=== PATIENT | male | born 1990 | race Caucasian/White ===

== ENCOUNTER → 2016-10-04 | Outpatient (CLI) | payer OTHER ==
--- NOTE | 2016-10-04 10:26 | NUR ---
Eval 2 Hr/Client was referred here for an eval as a referral from his po.
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
== END | disposition home or self-care (01) ==
LOC: ADTC.GI 08:31
DX: F12.20 Cannabis dependence, uncomplicated (principal); F15.20 Other stimulant dependence, uncomplicated

== ENCOUNTER 2016-11-29 09:25 | Inpatient (IN) | payer OTHER ==
[~2016-11-29] VITALS: Ht 154.9 cm; Wt 67.4 kg
--- NOTE | ~2016-11-29 | INDIVTXPL2 ---
"PATIENT: JOSE CARLOS SHERWOOD | | [facility] UNIT #: [id number] | [address] AGE/SEX: 26 M : [birth year] | [address] | [place] [address] ADMIT/REG DATE: 11/29/16 | ROOM: [facility] LOC: ADTC | ADTC | Individualized Treatment Plan DATE: 12/06 Problem Statement/Issue Identified: Client views self as honest and genuine with people thus lacks an objective viewpoint and has tendencies to be manipulative and controlling which contributes to his chemical use. Goal: Assist client in gaining an understanding of his behaviors and the importance of maintaing healthy boundaries in his relationship. Objectives/Activities to achieve goal: 1. Client is to read [place] to learn about various personality characteristics that are common in individuals who suffer from alocholism and drug addiction and share how he relates with his counselor and in group. Due Date: 12/17/16 Complete: Incomplete: 2. Client will read Letting Go the Need To Control sharing insight he has gained and how he relates with his counselor and in group. Due Date: 12/17/16 Complete: Incomplete: 3. Client will create a list of at least 8 Healthy Boundaries he needs to establish in his relationships and share this list with his counselor and in group. Due Date: 12/17/16 Complete: Incomplete: Client Signature Date Counselor Signaure: Date Outcome/Measurement of Progress Towards Goal: Counselor Signature: Date "
--- NOTE | ~2016-11-29 | CLPRLASSUM ---
"PATIENT: JOSE CARLOS SHERWOOD | | [facility] UNIT #: [id number] | [address] AGE/SEX: 26 M : [birth year] | [address] | [place] [address] ADMIT/REG DATE: 11/29/16 | ROOM: [facility] LOC: ADTC | ADTC | Client Problem List/Assessment Summary Date: 12/06/16 Problems identified by the client: Clients continued use has become unmanageable to the extent that treatment has become necessary. Client has drug charges and is currently on probation. Problems identified by significant others: N/A Client's Strengths: friendly, participates Problem List: Code: T Client needs to become familiar with basics of recovery as he is new to treatment and Twelve Step Program. Code: T Client views self as honest and genuine with people thus lacks an objective viewpoint. Has tendencies to be manipulative and controlling which contributes to his chemical use. Code: T Client continually sabotages his lifelong desire to be loved and cared for by keeping relationships shallow and pushing others away via acting out behaviors which contribute to his abuse of chemicals. Code: T Client needs to identify relapse warning signs and develop a plan to deal with them as they arise. Code Green: T: to be addressed during course of treatment O: problem noted, expected to resolve itself with abstinence--specific tx plan not required R: problem noted, will be referred upon discharge PRIMARY COUNSELOR: Ernestina Rivera"
--- NOTE | ~2016-11-29 | TXPLANREV ---
"PATIENT: JOSE CARLOS SHERWOOD | | [facility] UNIT #: [id number] | [address] AGE/SEX: 26 M : [birth year] | [address] | [place] [phone] ADMIT/REG DATE: 11/29/16 | ROOM: [facility] LOC: ADTC | ADTC | Treatment Plan/Staffing Review Date: 12/21/16 Treatment plan was reviewed and determined appropriate as written: yes Treatment plan was reviewed and the following changes/addition/deletions are necessary: Client was given a relapse prevention assignment along with a gratitude list to complete. Discharge plans were reviewed and determined appropriate as previously documented: yes Discharge plans were reviewed and determined to be as follows: Client will be discharging on December 27 and go to the [facility] with [facility]care [facility]. Other pertinent issues discussed during this staffing review include: none Staff Present: Gabriela Arias, Nori Dick, Jenni Cervantes, Krista Arias PRIMARY COUNSELOR: Ernestina Rivera Client Signature Counselor Signature Date Time "
--- NOTE | ~2016-11-29 | TXPLANREV ---
"PATIENT: JOSE CARLOS SHERWOOD | | [facility] UNIT #: [id number] | [address] AGE/SEX: 26 M : [birth year] | [address] | [place] [phone] ADMIT/REG DATE: 11/29/16 | ROOM: [facility] LOC: ADTC | ADTC | Treatment Plan/Staffing Review Date: 12/13/16 Treatment plan was reviewed and determined appropriate as written: Yes Treatment plan was reviewed and the following changes/addition/deletions are necessary: Client was given the assignment to write vent letters to his mother and father whom he says has abandoned him and feelings letter to his best friend and his girlfriend who he has been living with. Discharge plans were reviewed and determined appropriate as previously documented: yes Discharge plans were reviewed and determined to be as follows: Client has filled out applications and signed releases to [facility], [facility], and [facility]. Other pertinent issues discussed during this staffing review include: None Staff Present: Nori Smith Lori C PRIMARY COUNSELOR: Ernestina Rivera Client Signature Counselor Signature Date Time "
--- NOTE | ~2016-11-29 | RESCARESUM ---
PATIENT: JOSE CARLOS SHERWOOD | | [facility] UNIT #: [id number] | [address] [facility] AGE/SEX: 26 M : [birth year] | [address] | [place] [address] ADMIT/REG DATE: 11/29/16 | ROOM: [facility] LOC: ADTC | ADTC | Summary of Residential Care Primary Counselor: [facility] Date of Admission: 11/29/16 Date of Discharge: 12/27/16 Referral Source: probation Primary Care Provider Prior to Admission: None Given Admitting Diagnosis: F12.20 Cannabis Use Disorder, severe; F15.20 Stimulant Use Disorder, severe; Severe Thoracolumbar Scoliosis; Chronic Restrictive Pulmonary Disease due to severe Scoliosis; Chronic Intractable back pain; Tobacco Use Disorder all per history and physical by Dr. Cazares. Discharge Diagnosis: Same as above Goals Achieved: Client verbalized understanding of the severity of his powerlessness and unmanagability related to his substance use. He practiced identifying and appropriately expressing his feelings. Client began to work on relapse triggers and prevention plan. Continued Obstacles to Sobriety/Relapse Issues: Client believes that he has figured out how to stay clean and repeatedly stated how bored he was in treatment and just wanted to "get on with things." Family Issues Addressed: Client attended family education but had no family in attendance. Y Individual Therapy Y Group Therapy Y Educational Series on Substance Abuse N Parents/Significant Others Attended Family Program N Acute Medical Problems During the Course of Treatment N Transferred to Hospital During the Course of Treatment Y Accepting of Substance Abuse Problem N Non-accepting of Substance Abuse Problem N Required Psychological or Psychiatric Consultation During the Course of Treatment Completed AA Step # 1 During This Level of Care Significant Incidences During Treatment: None Reason For Discharge: Y Completed Residential TX Goals and Ready For Next Level of Care N Left Tx Against Medical Advice/Treatment Goals Not Complete N Completed Residential Tx Goals But Refusing Continuing Care Recommendations N Discharged Due to Noncompliance/Treatment Goals not Completed N Discharged Earlier Than Planned Due to: PATIENT: JOSE CARLOS SHERWOOD | | [facility] UNIT #: [id number] | [address] [facility] [facility] AGE/SEX: 26 M : 86 | [address] | [place] [address] ADMIT/REG DATE: 11/29/16 | ROOM: [facility] LOC: ADTC | ADTC | Summary of Residential Care Continuing Care Plan/Recommendations: N Intensive Partial Care Y Sponsor N Partial Care Y AA Meetings/NA Meetings Y Outpatient N Co-dependency Services N Therapeutic Community N [facility] [address] N Mental Health Therapy N Marriage Counseling N Other Specific Continuing Care Plan: It is recommended that client immediately check into the [facility] once he is discharged from residential treatment and follow all rules of the house. Client is recommended to complete outpatient treatment at [facility] with Roscoe Rios and outpatient group on Monday nights. It is recommended that client attend 3-4 AA/NA meetings per week, gain and call his sponsor weekly, and work a strong prgram of recovery. It is also recommended that client follow all probation rules and regulations. If client relapses it is recommended he seek a higher level of care. PRIMARY COUNSELOR: Ernestina Rivera
--- NOTE | ~2016-11-29 | INDIVTXPL2 ---
"PATIENT: JOSE CARLOS SHERWOOD | | [facility] UNIT #: [id number] | [address] AGE/SEX: 26 M : [birth year] | [address] | [place] [address] ADMIT/REG DATE: 11/29/16 | ROOM: [facility] LOC: ADTC | ADTC | Individualized Treatment Plan DATE: 12/06/16 Problem Statement/Issue Identified: Client needs to become familiar with basics of recovery as he is new to treatment and the Twelve Step Program. Goal: To assist client in gaining a better understanding of the power of his disease. Objectives/Activities to achieve goal: 1. Client will complete his Getting Started in Treatment packet where he will identify specific events and behaviors which have contributed to his decision to seek treatment and how his addiction has progressed over the years which he will share with his counselor and selected pages in group. Due Date: 12/12/16 Complete: Incomplete: 2. Client will complete Step 1, which will identify core values he has compromised in his addiction and share with his counselor and selected pages in group. Due Date: 12/12/16 Complete: Incomplete: 3. Client is to attend AA/NA meetings, ask for and get at least 5 names and numbers of men in recovery, helping him build a support system and gain a possible sponsor, and share that list with his sponsor. Due Date: on-going Complete: Incomplete: Client Signature Date Counselor Signaure: Date Outcome/Measurement of Progress Towards Goal: Counselor Signature: Date "
--- NOTE | 2016-11-29 13:06 | NUR ---
Admit Note: Client is 26 y/o single male from . Dropped off by [facility] staff where he has been for 10 days. DOC is meth last used 11/06 and second DOC is pot also last used 11/06. Doesn't anticipate any family participation.
--- NOTE | 2016-11-29 22:43 | NUR ---
Education: 1 hour lecture given by counselor on co-dependency
--- NOTE | 2016-11-29 22:53 | NUR ---
Tech note: clients played catchphrase for rec, participated in guided meditation and attended AA meeting SE: 1st full day
--- NOTE | 2016-11-30 04:37 | NUR ---
bed note: client was in bed with eyes closed and motionless at all bed checks.
--- NOTE | 2016-11-30 09:55 | NUR ---
Tech notes: Client is working on Getting started
--- NOTE | 2016-11-30 11:30 | NUR ---
GROUP 1.5 HRS. 1:12 Client was oriented to purpose and rules of group. Discussion included healthy coping skills to deal with stress and feelings. Peer processed from his step 1 assignment identifying how he betrayed his values in his addiction.
--- NOTE | 2016-11-30 13:15 | NUR ---
Education note: Client attended educational speaker Dallas Patel
--- NOTE | 2016-11-30 17:00 | NUR ---
Trauma Note: Client has had trauma that will be addressed in individual therapy. Client may want to do EMDR.
--- NOTE | 2016-11-30 17:00 | NUR ---
Individual Therapy, 1.0 hours, This session focused on orienting client to how treatment works. Client was welcomed and asked to explain the chain of events that led him to residential treatment. Client was advised he will see his counselor twice a week, is required to attend all programming and be on time, discussed family participation and signed release forms, explained visiting hours and no phone privileges for the first week, explained to wave at the [facility] if awake during bed check, and reviewed his initial treatment plan.
--- NOTE | 2016-11-30 17:31 | NUR ---
SPIRITUAL EDUCATION 1 HR. Today we used music to invoke discussion, symbolize how it can be either positive spirituality or negative spirituality, and discussed the feelings. We used one song that depicted addiction, one that talked about recovery, and since we are close to Mother's Day, one that depicted addiction in parents and forgiveness.
--- NOTE | 2016-11-30 18:19 | NUR ---
Education: 1 Hour. Client attended "Boudaries" lecture given by staff.
--- NOTE | 2016-11-30 20:38 | NUR ---
Family Note: Client does not have any family and was abandoned at a very young age. Client may ask his roommate to join in family education but is not sure at this time.
--- NOTE | 2016-11-30 22:58 | NUR ---
Tech Note: Client played a game for rec, and attended The on unit N.A.Meeting. SE:All Day
--- NOTE | 2016-12-01 04:30 | NUR ---
Bed Note: Client was in bed with eyes closed and motionless at all bed checks.
--- NOTE | 2016-12-01 12:44 | NUR ---
Group 1.5 Hr Ratio 1:9/Topics today were a collage, two step ones, a getting startred and feelings letters. Client shared how he could relate to what clients were sharing from assignments and issues. Almost too much.
--- NOTE | 2016-12-01 16:44 | NUR ---
FAMILY EDUCATION 3 HRS. Client attended alone and took part in the discussion on the disease concept. All related to progression and consequences of addiction. Client is very verbal and offers many examples of the progression of his addiction.
--- NOTE | 2016-12-01 18:17 | NUR ---
Education 1HR: Clt watched video called "Predator part 1" by Josue Del Rosario with staff present.
--- NOTE | 2016-12-01 23:11 | NUR ---
Tech Note: Client took a walk for rec and attended the A.A.Meeting. Client went to room c/o migraine
--- NOTE | 2016-12-01 23:24 | NUR ---
1:00 pm. Education Note: Client watched video "Inside the Addictive Personality"
--- NOTE | 2016-12-02 04:09 | NUR ---
Bed Note: Client was in bed and motionless at all bed checks.
--- NOTE | 2016-12-02 11:59 | NUR ---
Group 1.5 hr Ratio 1:10/Topics today were Orientation a new client to group rules and goals, a con game packet and a letter to a family member. Client shared a lot and had to be reeled in some so he would not monopalize group. Some times grace got way off track.
--- NOTE | 2016-12-02 14:34 | NUR ---
PEER REVIEWS 1.5 HRS: Clt participated in peer review process and was able to give open and honest feedback to those receiving a review.
--- NOTE | 2016-12-02 15:42 | NUR ---
Tech Note: Client participated in group walk and watched "Marijuana" by Josue Del Rosario. Assignment being worked on is Step 1.
--- NOTE | 2016-12-02 23:23 | NUR ---
Tech note: Client played games and watched movies. Client walked to an offsite AA meeting.
--- NOTE | 2016-12-03 04:02 | NUR ---
Bed note: Client was in bed with eyes closed and no distress at all bed checks
--- NOTE | 2016-12-03 16:55 | NUR ---
Tech Note: Client went to A.A.Meeting at [address]. also went on walk Client is working on Step One
--- NOTE | 2016-12-03 22:16 | NUR ---
Tech note: Client's were just starting to grill around 6pm so we did not have rec this evening. Client walked to an offsite AA meeting, played games and watched movies. SE; Family
--- NOTE | 2016-12-04 04:46 | NUR ---
tech note: client was motionless in no distress at all bed checks.
--- NOTE | 2016-12-04 17:42 | NUR ---
Tech Note: Client participated in Big Book study. Client attended quaker. Client stated that he is working on reading the Big Book.
--- NOTE | 2016-12-04 23:31 | NUR ---
tech note: Client participated in community clean & attended FINANCIAL REPORTING ANALYST. Client was redirected by tech for talking and being disruptive during the client meeting- also made inappropriate remarks. SE: all day.
--- NOTE | 2016-12-05 04:25 | NUR ---
tech note: client was motionless in no distress at all bed checks.
--- NOTE | 2016-12-05 11:30 | NUR ---
Experiential Group 1.5 hr/ Clients all participated in looking at family dynamics and feelings through sculpturing and participated with feedback, relating and/or role-playing. This client participated in sculpture.
--- NOTE | 2016-12-05 17:50 | NUR ---
Tech Note: Client went for an outdoor walk in the afternoon. Client stated that he is working on Step One.
--- NOTE | 2016-12-05 20:49 | NUR ---
Education 1 HR: Clt listened to lecture given by counselor on communication.
--- NOTE | 2016-12-05 21:00 | NUR ---
FAMILY EDUCATION 3 HRS., GROUP 2 HRS. 2:9 Client attended alone and took part in the discussion on the family roles, codependency and detachment. Client related to mascot roles. Client actively participated and shared about resentments towards his family. He is encouraged to write feelings letters to them (to journal only) and work on letting go of resentments. He repeatedly said "can't" let go and was challenged to reword to "won't" and work on willingness.
--- NOTE | 2016-12-05 23:14 | NUR ---
Client was in family client received his first TRUE 30 day chip at N.A.Meeting
--- NOTE | 2016-12-06 04:58 | NUR ---
Bed Note: Client was in bed and motionless at all bed checks
--- NOTE | 2016-12-06 12:36 | NUR ---
A.M. 1.5 hr group/ Assignments shared were step 1, feelings letters, timeline to music, and a group member asking for help on how to forgive self. This client gave a lot of feedback and at times talks too much. He also had to be told to not play with his necklace, to stand on his feet instead of his knees when behind chair. He also wandered over to the brochures on the table and started looking at them and was told to not do that. He said he would like to become a counselor.
--- NOTE | 2016-12-06 15:19 | NUR ---
Tech Note: Client joined group for afternoon walk, listened to speaker from the [facility] and is working on Step 1 and journalling.
--- NOTE | 2016-12-06 16:06 | NUR ---
Tech Note: Client attended Relapse Prevention education with Nori.
--- NOTE | 2016-12-06 19:55 | NUR ---
Education: 1 hour lecture on STD/AID/HIV gicinthia by [facility].
--- NOTE | 2016-12-06 22:35 | NUR ---
Tech note : Client worked on Slacker crafts and get well cards. Client participated in guided meditation and went to an onsite AA meeting.
--- NOTE | 2016-12-07 04:16 | NUR ---
Bed note: Client was in bed with eyes closed and no distress at all bed checks
--- NOTE | 2016-12-07 11:15 | NUR ---
Tech Note: Client is working on Step 1.
--- NOTE | 2016-12-07 12:08 | NUR ---
AM GROUP 13:1/1.5 HR: Client and peers heard multiple clients process assignments and issues. Most did offer feedback, asked clarifying questions and shared from their own experiences. This client did volunteer to process an assignment, but time ran out due to many who wanted to relate and share. Client was active throughout with support and sharing.
--- NOTE | 2016-12-07 13:19 | NUR ---
Tech Note: Client walked in the hallways for afternoon exercise.
--- NOTE | 2016-12-07 13:23 | NUR ---
Education One Hour: Client heard from members of the recovery community, who shared their experience, strength and hope.
--- NOTE | 2016-12-07 18:47 | NUR ---
Education: 1 hour lecture given by counselor on "Disease concept".
--- NOTE | 2016-12-07 20:53 | NUR ---
Individual Therapy, 1.0 hours, This session focused on developing clients problems needs list along with treatment plans. Client signed releases for the [place] [place] [facility] [place].
--- NOTE | 2016-12-07 22:33 | NUR ---
Tech note: Client played catch phrase for rec and attended an onsite NA meeting. SE: All day
--- NOTE | 2016-12-08 05:00 | NUR ---
Bed note: Client was in bed with eyes closed and no distress at all bed checks.
--- NOTE | 2016-12-08 10:47 | NUR ---
Tech Note; Client participated in light stretching for morning exercise. Client stated that he is working on Step One and reading the NA book.
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
--- NOTE | 2016-12-08 12:51 | HP ---
ADMIT: 11/29/2016 RM/LOC: [facility] MR#: [id number] [address] [facility] [address] [place] [id number] JOSE CARLOS SHERWOOD [address] [place] [address] History and Physical SEX: M AGE: 26 : 1990 DATE OF SERVICE: CHIEF COMPLAINT: Continued drug use while on probation. CLINICAL HISTORY: The patient is a 26-year-old disabled white male admitted to the residential care program for treatment of his cannabis use disorder and methamphetamine use disorder. He is referred to treatment after having failed a UA while on probation. The patient is currently on probation for possession of a controlled substance and obstruction of justice. He continued to use while on probation and after having several positive UAs. He was given the option of having his probation revoked and going to long term or coming to treatment. For that reason, he was admitted to the [facility] and is in detox at [facility] prior to coming to treatment. The patient notes his drug of choice is marijuana. He has been smoking pot since age 9. He has been a heavy pot user for the past 8-9 years typically smoking minimum of 3 g a day, going through a 0.25 ounce of pot every 2 days. He notes he usually will smoke a bowl or a joint in the morning and continued to smoke intermittently throughout the day. His second drug of choice is methamphetamine, which he just started using in the last couple of years. First use was at age 24. Introduced to meth by one of his friends. He notes he either snorts or smokes meth. Typically using about a quarter gram per day. The patient notes that his legal problems have escalated significantly since he started using meth. He does note that he has not drank alcohol since age 19. He had start drinking alcohol around age 10 with frequently binge drink to intoxication, but after being arrested for a DUI at age 19. He has not drank since that time noting that his state primarily with pot, which has always been his drug of choice. The patient notes as a teen, he experimented with inhalants a couple of times but he has really used no other drugs. His drugs of choice are pot and meth. He has had no prior treatment. He comes to treatment at this time in hopes of preserving his probation and avoiding going to long term. PAST MEDICAL HISTORY: Previous hospitalizations. The patient was hospitalized with an unintentional overdose of drugs at age 14. The patient notes he had taken a large amount of drug. He was unsure what they were. Because of his drug overdose, he ended up in the hospital in a coma for 4-5 days at age 14. He has had no other recent hospitalizations. His only previous surgical procedure was extraction of his wisdom teeth as a teenager. CURRENT MEDICATIONS: None. ALLERGIES: NONE KNOWN. MEDICAL ILLNESSES: The patient has severe thoracolumbar scoliosis with chronic back pain. He was recommended to have surgery for his scoliosis when he was a teenager, but his mother refused to let him have surgery at that time. He subsequently has had chronic ongoing back pain, which limits his ability to work. He cannot do any type of physical or strenuous work activity. Other than for his scoliosis, he denies scoliosis with associated chronic back pain. He denies any other chronic medical problems. ADMIT: 11/29/2016 RM/LOC: [facility] MR#: [id number] [address] [place] [id number] JOSE CARLOS SHERWOOD [address] [place] [address] History and Physical SEX: M AGE: 26 : 1990 REVIEW OF SYSTEMS: On 12-point review of systems no other significant history other than he is a smoker, typically smoking greater than a pack a day. He denies significant cough or shortness of breath. SOCIAL HISTORY: The patient is single. He is noted to have dropped out of high school in the 10th grade. He did get his GED while at the [employer]. He presently is living in a house he rents with a couple of friends. He notes that because of his family issues he was at the [employer] for 2-1/2 years from age 13 to age 16. He does note that he is currently on probation for legal charges and has been on probation since mid October of 2016. FAMILY HISTORY: The patient notes that his parents when he was quite young. He has had essentially no contact with his father. He notes he was raised by his maternal grandparents until he was approximately age 10. He then lived briefly with his mother and stepfather but after living with him for a short while was then placed at the [employer]. The patient notes he has older brother and a younger brother. He knows very little about his father's family. He notes that several of his uncles on his mother side of the family have had some drug and alcohol issues. PHYSICAL EXAMINATION: VITAL SIGNS: Temp is 96, pulse 94, respirations 20, blood pressure 121/74, height 5 feet 1 inch, his weight is 147 pounds. GENERAL: The patient is a 26-year-old male who is in no acute distress. Oriented x3. ENT: Unremarkable. Nose and throat noninflamed. NECK: Supple without adenopathy. LUNGS: Today are noted to be diminished. Due to his scoliosis, he has marked chest deformity and limited chest expansion. Severe thoracolumbar scoliosis. HEART: Has a regular rhythm without murmur. ABDOMEN: Somewhat protuberant and nondistended. Bowel sounds normoactive. I do note that his ribs on the right side touch his iliac crest when he is seated due to his severe scoliosis. There is some abdominal crowding due to this factor. GENITALIA: Normal male. EXTREMITIES: Normal to gross exam. Moves all extremities well. NEUROLOGIC: I can see no focal deficit. He has a markedly abnormal spine exam with severe scoliosis and limited mobility in his spine. Neurologic as noted no focal deficits. MENTAL STATUS EXAMINATION: He is pleasant and cooperative. Affect is appropriate. No bizarre ideation. No delusions. He is oriented x3. His memory is intact. He appears to be of average intelligence. His insight and judgment are both limited. ASSESSMENT AT THE TIME OF ADMISSION: 1. Cannabis use disorder, severe. 2. Stimulant use disorder, severe. 3. Severe thoracolumbar scoliosis. ADMIT: 11/29/2016 RM/LOC: [facility] MR#: [id number] [address] [id number] JOSE CARLOS SHERWOOD [address] [place] [address] History and Physical SEX: M AGE: 26 : 1990 4. Chronic restrictive pulmonary disease due to his severe scoliosis. 5. Chronic intractable back pain. 6. Tobacco use disorder. PLAN: Plan is to admit the patient to the residential care program with a tentative discharge date of 12/27/2016. I encouraged the patient to consider group home house placement. I feel that he will benefit from the structure and supportive environment of a group home house to help maintain his long-term sobriety. I strongly encouraged him to seek further orthopedic spine consultation once he is out of the treatment program. I would recommend referral to [facility] to see if he could get him some support and help and pursuing his treatment of his spinal disorder. Patrice Cazares MD/ [facility] JOB #: [id number] CC: Patrice Cazares, Attending Physician FAMILY PHYSICIAN, Family Physician
--- NOTE | 2016-12-08 15:59 | NUR ---
Step Education 1 hr/Focus was on step 4 making a searching and fearless moral inventory of ourselves. Handed out some questions each person answered on paper and then we discussed. This person participated.
--- NOTE | 2016-12-08 16:21 | NUR ---
Education 1 Hour: Client heard from two members of the recovery community, who shared their experience strength and hope.
--- NOTE | 2016-12-08 20:25 | NUR ---
Education: 1 Hour. Client attended Wili Chan "Unhealthy Families" video.
--- NOTE | 2016-12-08 20:51 | NUR ---
Late note due to illness. Individual therapy, 1.0 hours, This session focused on review of clients BPS and Getting Started Packet. Client was given Step 1 to work on.
--- NOTE | 2016-12-08 23:01 | NUR ---
Client went on a walk for rec, participated in guided meditation, and attended the on unit A.A.Meeting. SE: A.A.Meeting
--- NOTE | 2016-12-09 05:36 | NUR ---
tech note: client was motionless in no distress at all bed checks.
--- NOTE | 2016-12-09 11:55 | NUR ---
Group 1.5 Hr Ratio 1:11/Topics today were two Getting started packets, feelings letters and a letter to self. Client shared what people should do but not how he could relate to what they shared. Client likes to tell others what to do but needs to look at his won behavior.
--- NOTE | 2016-12-09 14:50 | NUR ---
Tech Note: Client joined our group walk for exercise. Watched video titled "Sound of Silence" and is working on Step 1.
--- NOTE | 2016-12-09 14:50 | NUR ---
Tech Note: Client joined our group walk for exercise. Watched video titled "Sound of Silence" and is working on Step 1.
--- NOTE | 2016-12-09 15:43 | NUR ---
PEER REVIEWS 1.25 HRS: Clt participated in peer reviews and took a risk to give open and honest feedback to those receiving a review.
--- NOTE | 2016-12-09 16:00 | NUR ---
Individual Therpay, 1.0 hours, This session focused on reviewing clients BPS and Getting Started Packet. Client was given Step 1 and Letting Go the Need to Control to complete.
--- NOTE | 2016-12-09 20:31 | NUR ---
TECH NOTE: Client participated in reading of guidelines, watched TV/movies and attended optional off site AA meeting SE: lunch
--- NOTE | 2016-12-10 04:32 | NUR ---
BED NOTE: Client was in bed, motionless with eyes closed all bed checks.
--- NOTE | 2016-12-10 16:20 | NUR ---
Tech Note: Client is working on Profig.
--- NOTE | 2016-12-10 20:26 | NUR ---
Tech note: Clt played a game for recreation and attended offsite AA mtg. Clt played cards, watched tv and used phone. SE was rec time
--- NOTE | 2016-12-11 04:26 | NUR ---
BED NOTE: Client was in bed motionless with eyes closed all three bed checks.
--- NOTE | 2016-12-11 15:56 | NUR ---
Tech Note: Client participated in Big Book study. Client stated that he is working on Step One.
--- NOTE | 2016-12-11 23:07 | NUR ---
Tech Note: Client attended the A.A.Panel with Rashard Kelly Client also attended the SECURITY INTELLIGENCE ANALYST Meeting SE: Napping
--- NOTE | 2016-12-12 04:38 | NUR ---
Bed Note: Client was laying in bed and motionless at all bed checks.
--- NOTE | 2016-12-12 09:49 | NUR ---
Tech note: Client is working on Step 1 and Anger pkt
--- NOTE | 2016-12-12 12:56 | NUR ---
Education Note: Clients attended speaker for education Kit J.
--- NOTE | 2016-12-12 15:54 | NUR ---
PEER REVIEWS 1.25 HRS: Clt participated in peer reviews and took a risk to give open and honest feedback to those receiving a review.
--- NOTE | 2016-12-12 16:00 | NUR ---
RECOVERY 101 1 hr/ Clients discussed what they are learning from attending the 12 step recovery meetings about fundamentals of recovery, how to work a program such as: get and use a sponsor, work the steps, read C.A.L., HOW/honesty, openminded &willing, service work, HP/spirituality, opening up, slogans, serenity prayer, home group/meetings, etc. Clients shared and got into story telling at times. They learned 15% is addiction and 85% is the living problem so this is why keep going to meetings and working the program is vital.
--- NOTE | 2016-12-12 18:20 | NUR ---
Education: 1 Hour. Client attended "Feelings" lecture presented by staff.
--- NOTE | 2016-12-12 23:20 | NUR ---
tech note: client played Catch Phrase for recreation & attended onsite NA meeting. Client was redirected by tech for doing pull-ups using the frame of the smoke hut & later for using the chair to do sit-ups. Client was redirected for his language by tech during recreation. SE: All Day.
--- NOTE | 2016-12-13 04:47 | NUR ---
tech note: client was motionless in no distress at all bed checks.
--- NOTE | 2016-12-13 09:00 | NUR ---
Individual Therapy, 1.0 hours, This session focused on review of clients Step 1 pcket. Client was also addressed about starting a relationship in treatment and how this is not something that is accepted. Client shared that there was no relationship and that he didn't want a girl that everyone else could have also. Client shared that he accepted that he needed to go to a more structured environment and so he filled out applications and release of information for the [employer], [employer] and [email or web address].
--- NOTE | 2016-12-13 15:49 | NUR ---
Relapse Prevention, 1.0 hours, Client attended and actively participated in relapse prevention education which focused on compulsive behaviors and relapse.
--- NOTE | 2016-12-13 16:11 | NUR ---
Tech Note: Client watched Part 2 of Predator by Josue Del oRsario and had Relapse Prevention for 3:00 education. Assignment being worked on: Step 1.
--- NOTE | 2016-12-13 16:24 | NUR ---
Education Note: Client attended Relapse Prevention presented by counselor Ernestina.
--- NOTE | 2016-12-13 20:18 | NUR ---
Education: 1 hour lecture given by counselor on relapse.
--- NOTE | 2016-12-13 20:27 | NUR ---
tech note: Client went for walk for rec, participated in guided meditation and attended AA meeting
--- NOTE | 2016-12-13 23:37 | NUR ---
Tech Note: Client went on a walk for rec and attended the on unit A.A.Meeting. Client participated in Guided Meditation at 1930. SE: All Day
--- NOTE | 2016-12-14 04:57 | NUR ---
Bed note: client was in bed with eyes closed and no distress at all bed checks.
--- NOTE | 2016-12-14 10:20 | NUR ---
Tech notes: Client is working on step 1
--- NOTE | 2016-12-14 11:30 | NUR ---
BIG GROUP 4:21 Group was brought together to discuss issues of old behaviors, treatment relationships and other violations of guidlines that are being kept secret. All were encouraged to look at the difficulty they have confronting with assertiveness, rather than passive/aggressive. This client was minimally involved in discussion.
--- NOTE | 2016-12-14 13:48 | NUR ---
Educational note: Client watched a video for education.
--- NOTE | 2016-12-14 17:14 | NUR ---
SPIRITUaL EDUCATION 1 HR. Clients were oriented to the group and learned difference between spirituality and restorationism. We addressed GRATITUDE today with discussion, worksheet and activity.
--- NOTE | 2016-12-14 18:24 | NUR ---
Education: 1 Hour. Client attended "Self Esteem" lecture presented by staff.
--- NOTE | 2016-12-14 23:26 | NUR ---
tech note: client went on a walk for recreation & attended the onsite NA meeting. Client was redirected by tech for bringing a bath towel & piece of clothing into the client meeting,he was told to take it out & he complies. Client had a comb & was combing his garcia at times during the client meeting. SE: All day.
--- NOTE | 2016-12-15 05:12 | NUR ---
Bed Note: Clt lay motionless in bed with eyes closed showing no distress at all bed checks.
--- NOTE | 2016-12-15 11:18 | NUR ---
Tech Note: Client participated in Spiritual Enrichment. Client stated that he is working on, "Letting Go of the Need to Control."
--- NOTE | 2016-12-15 11:30 | NUR ---
AM GRP 1.5 HRS, Ratio 1:11/ Clt participated in grp discussion, and shared several times on most every topic, as he says he can relate to everything.
--- NOTE | 2016-12-15 17:08 | NUR ---
step education 1 hr/ Focus was on step 6 and looking at character defects and letting God remove them. Each person took some time looking at a list of character defects and wrote out answers to a set of questions and then shared and discussed. This client participated. He shared some defects are anger, immaturity,contoling and arrogance. He got mad at a peer and told him to shut up.
--- NOTE | 2016-12-15 19:16 | NUR ---
Education 1 Hour: Client heard a presentation on marijuana.
--- NOTE | 2016-12-15 20:07 | NUR ---
Individual Therapy, 1.0 hours, This session focused on review of clients Step 1. Client had only gotten about half of the assignment done and was advised to have it done by next Monday. He was also given a self-worth packet to finish. Client shared that he is feeling kind of depressed and has lost interest in treatment and the assignments. Client shared he is missing an old girlfriend and that he was sad that a client left today. He was able to share some of the reasons why it upset him and that he does not like change. Client also talked about getting on Melatonin for sleep and the nurse was talked to about this. If client continues to feel depressed then he was told to fill out a self-care sheet.
--- NOTE | 2016-12-15 22:12 | NUR ---
Education 1 HR: Clt watched video by Rocio "Pamela Pringle" with staff present.
--- NOTE | 2016-12-15 22:38 | NUR ---
Tech Note; Asked counselor about going to room because of MATIAS at 1830 hrs and was OKed to go to room for rest of the night. Clt checked at 2200 hrs and didn't request anything further.
--- NOTE | 2016-12-16 04:46 | NUR ---
Bed Note: Clt lay motionless in bed with eyes closed showing no distress at all bed checks.
--- NOTE | 2016-12-16 11:30 | NUR ---
GROUP 1.5 HRS. 1:11 This client shared from his step 1 assignment to identify how betrayed values (pg. 10) and effects on others (pg. 11). He only had 6 examples of effects on others-not 10-and one of his 6 was the effects on himself. He was challenged to look at effects on others. He was confronted on justifying and blaming. Peers processed feelings letters and sharing damage to relationships.
--- NOTE | 2016-12-16 15:59 | NUR ---
PEER REVIEWS 1.25 HRS: Clt participated in peer reviews and took a risk to give open and honest feedback to those receiving a review.
--- NOTE | 2016-12-16 16:22 | NUR ---
Tech Note: Client listened to speaker Adi Alcantara and is working on Letting Go of the Need to Control.
--- NOTE | 2016-12-16 20:58 | NUR ---
Tech note: client watched TV and movies. Walked to optional offiste AA meeting. Client was redirected for being disruptive during comm. meeting. SE:peer review
--- NOTE | 2016-12-17 04:59 | NUR ---
Bed note: Client was in bed with eyes closed and no distress at all bed checks.
--- NOTE | 2016-12-17 16:53 | NUR ---
Tech Note: Client attended the A.A.Meeting at [address] [place] [address] and is working on Letting go of control. Client had an appointment with the [facility].
--- NOTE | 2016-12-17 22:58 | NUR ---
Tech note: Client walked around the park a few times for rec. Client walked to an off site AA meeting. Client was late for rec and used foul language when redirected by tech. SE: Meeting
--- NOTE | 2016-12-18 05:02 | NUR ---
Bed note: client was in bed with eyes closed and no distress at all bed checks.
--- NOTE | 2016-12-18 15:33 | NUR ---
TECH NOTE: Client participated in big book study, attended study time, completed chores and watched tv/movies. Interview with Juan Vega and was accepted
--- NOTE | 2016-12-18 23:34 | NUR ---
tech note: Client participated in [employer] & attended SE[employer] meeting. Client talked on the phone & watched tv. SE: Accepted into [employer].
--- NOTE | 2016-12-19 04:46 | NUR ---
Bed note: client was in bed with eyes closed and no distress at all bed checks.
--- NOTE | 2016-12-19 15:17 | NUR ---
Tech note: Client is working on Letting go
--- NOTE | 2016-12-19 23:03 | NUR ---
Tech Note: Clt walked for recreation and attended onsite NA mtg. Watched tv and movies. SE was visits
--- NOTE | 2016-12-20 04:45 | NUR ---
Bed Note: Clt lay motionless in bed with eyes closed showing no distress at all bed checks.
--- NOTE | 2016-12-20 11:30 | NUR ---
Morning Group, 07/31 ration, 1.5 hours, Client attended and actively poarticipated in group discussion. Client shared how he related to the book Katheryn Prado.
--- NOTE | 2016-12-20 15:38 | NUR ---
Tech Note: Client participated in light stretching for morning exercise and went on an outdoor walk in the afternoon. Client stated that he is working on, "Letting Go of the Need to Control."
--- NOTE | 2016-12-20 15:48 | NUR ---
Education 1 Hour: Client watched the video, "How to Sabotage your Treatment."
--- NOTE | 2016-12-20 23:11 | NUR ---
Tech note: Client walked a mile for rec, did guided meditation and attended an onsite AA meeting. SE; Sharing at meeting
--- NOTE | 2016-12-21 04:23 | NUR ---
Education: 1 Hour. Client attended presentation by staff on "Step 1."
--- NOTE | 2016-12-21 05:19 | NUR ---
Bed note: Client was in bed with eyes closed and in no apparent distress at all bed checks.
--- NOTE | 2016-12-21 09:44 | NUR ---
Tech notes: Client is working on Letting go
--- NOTE | 2016-12-21 11:50 | NUR ---
Group 1.5 hr Ratio 1:7/Topics today were orientating two new clients to group rules and goals, a good bye letter to an addiction and being able to say no. Client shared how he could relate to what peers were sharing and attempted to monoplize group by talking all the time.
--- NOTE | 2016-12-21 13:31 | NUR ---
Education note: Client attend educational speaker Fouzia Noble
--- NOTE | 2016-12-21 16:00 | NUR ---
Individual Therapy, 1.0 hours, Client shared that he is frustrated with treatment and wants to get out a week early due to being excepted into the [facility]. Client was told that he is set to leave at 10:00 on Monday the . Client stated he does not want a lot of homework because he is not done with what he has been given. Client went over his booklet, Letting Go of the Need to Contrl and Stinkin Thinkin. Client was assigned a relapse prevention packet.
--- NOTE | 2016-12-21 16:24 | NUR ---
SPIRITUAL EDUCATION 1 HR. Newcomers were oriented to group. Todays topic was addicted self vs spiritual self which we discussed first then they depicted the contrast in artwork. The ones that finished first wrote letters to welcome anonymous newcomers.
--- NOTE | 2016-12-21 22:52 | NUR ---
Tech note : Client played catch phrase for rec and attended an onsite NA meeting. SE; Spirituality
--- NOTE | 2016-12-22 04:43 | NUR ---
Bed note: client was in bed with eyes closed and no distress at all bed checks.
--- NOTE | 2016-12-22 10:58 | NUR ---
Tech Note : Client participated in Spiritual Enrichment. Client stated that he is working on, "Letting Go of the Need to Control."
--- NOTE | 2016-12-22 12:38 | NUR ---
Group 1.5 hrs. Ratio 1:9/ Topics were orientation for new clients to group, rules and goals. One client shared feeling packet.others gave feed back and other feelings were discussed. Client shared his fear of being around people using drugs after he is discharded. He shared that he knows what he should do but is also aware of the chance of relapse.
--- NOTE | 2016-12-22 13:10 | NUR ---
Education 1 Hour: Client heard a recovery speaker who addressed the subject of hope.
--- NOTE | 2016-12-22 16:59 | NUR ---
Step education/1 hr/ Focus was on step 7 of the 12 steps "Humbly asked him to remove shortcomings", and each person completed a set of questions on paper and then discussed. This client participated and said he continues to work on when to have fun and when to be serious.
--- NOTE | 2016-12-22 20:36 | NUR ---
Education: 1 Hour. Client attended Ross Wakefield video "Step 5."
--- NOTE | 2016-12-22 22:59 | NUR ---
Client went on a walk for rec, participated in guided meditation, and attended the on unit A.A.Meeting. SE: All Day
--- NOTE | 2016-12-23 05:29 | NUR ---
Bed Note: Client was in bed and motionless at all bed checks.
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
--- NOTE | 2016-12-23 13:00 | NUR ---
PEER REVIEWS 1.5 HRS: Clt participated in peer review process and received his own. He heard he is grandios, center of attention, hiding behind a mask, is a follower, cocky, hardheaded, a joker, stubborn, focus' on negativity, looks down on himself. He felt ashamed, afraid and glad.
--- NOTE | 2016-12-23 14:27 | NUR ---
Tech Note: Client watched Recovery Issues Part 3. Is working on Letting Go of the Need to Control.
--- NOTE | 2016-12-23 16:39 | NUR ---
Individual Therapy, 1.0 hours, This session focused on the review of clients Relapse Prevention packet along with having a discussion about the book Shame Faced. Client shared that he had a peer review and heard some things that kind of suprised him but that he was willing to work on.
--- NOTE | 2016-12-23 20:19 | NUR ---
Tech note: Clt read guidelines as a grp and watched tv/movies. Used phone. SE was talking father
--- NOTE | 2016-12-24 05:20 | NUR ---
BED NOTE: Client was in bed, motionless with eyes closed all bed checks.
--- NOTE | 2016-12-24 16:52 | NUR ---
Tech Note: Client attended NA Panel today and is working on Relapse Prevention and Letting Go of the Need to Control.
--- NOTE | 2016-12-24 20:15 | NUR ---
TECH NOTE: Client participated in beads for REC, attended offsite AA meeting and watched TV/Movies. SE: all day
--- NOTE | 2016-12-25 04:56 | NUR ---
Bed Note: Clt lay motionless in bed with eyes closed showing no distress at all bed checks.
--- NOTE | 2016-12-25 16:13 | NUR ---
Tech Note: Client is working on Relapse Prevention.
--- NOTE | 2016-12-25 22:59 | NUR ---
Tech Note: Client attended the on unit A.A.Panel. Client aslo attended the on unit HEATER MECHANIC Meeting. SE: [place]
--- NOTE | 2016-12-26 04:41 | NUR ---
Client was in bed and motionless at all bed checks.
--- NOTE | 2016-12-26 09:57 | NUR ---
Lee notes: Client is working on Relapse prevention and mtg with rob
--- NOTE | 2016-12-26 11:30 | NUR ---
Group 1.5 hr/ 10:1 Clients did give feedback for 2 peer reviews and then heard 2 peers share GS packets. This client was attentive and offered some feedback.
--- NOTE | 2016-12-26 13:36 | NUR ---
Education note: Client attended educational speaker Antonina on Tobacco
--- NOTE | 2016-12-26 15:52 | NUR ---
Individual Therapy, 1.0 hours, This session focused on review of clients relapse prevention packet along with making sure things were put into place for when he is discharged tomorrow. Client will be checking into the [facility] and then attending outpatient with Roscoe. He will be in group on Monday evenings.
--- NOTE | 2016-12-26 16:00 | NUR ---
RECOVERY 101 1 HR/ Clients did read and discuss several topics in the Big Book on HOnesty, 1/2measures, step 3, selfishness, 12 Promises, resentments, acceptance and how changing their attitudes empowers them to have happiness daily. They were given highlighters so the Big Book can become a tool in recovery.
--- NOTE | 2016-12-26 18:17 | NUR ---
EDUCATION 1 HR: Counselor gave lecture on forgiveness.
--- NOTE | 2016-12-26 23:34 | NUR ---
tech note: Client played Catch Phrase for recreation & attended onsite NA meeting. Client was given his luggage. SE: All Day
--- NOTE | 2016-12-27 05:38 | NUR ---
BED NOTE: Client was in bed, motionless with eyes closed all bed checks.
--- NOTE | 2016-12-27 10:11 | NUR ---
DISCHARGE NOTE Client completed treatment and left e facility taking all personal belongings with him. Discharge instructions wre reviewed and a signed copy provided to the client.
--- NOTE | 2017-01-18 19:00 | NUR ---
Outpatient:Client was a no call no show. Was taken out of group due to non-attendance.
--- NOTE | 2017-01-29 16:59 | DS ---
ADMIT: 11/29/2016 RM/LOC: [id number] MR#: [id number] [address] [facility] [address] [place] [id number] JOSE CARLOS SHERWOOD [address] [place] [address] General Discharge Summary SEX: M AGE: 26 : 1990 ADMISSION DATE: 11/29/2016 DISCHARGE DATE: 12/27/2016 ADMITTING DIAGNOSIS: As per history and physical. FINAL DIAGNOSES: 1. Cannabis use disorder, severe. 2. Stimulant/methamphetamine use disorder, severe. 3. Severe thoracolumbar scoliosis. 4. Chronic restrictive pulmonary disease due to his severe scoliosis. 5. Chronic intractable back pain. 6. Tobacco use disorder. COMPLICATIONS: None. OPERATIONS: None. CLINICAL HISTORY: The patient is a 26-year-old disabled white male, admitted to the residential care program for treatment of his cannabis use disorder and methamphetamine use disorder. The patient is referred to treatment through probation. The patient is currently on probation for possession of a controlled substance and obstruction of justice. The patient has continued to use both methamphetamine and marijuana. While on probation, he has had numerous positive UAs. For details of his pattern and usage and problems associated with his ongoing substance abuse and chemical dependency, please see the clinical history portion of the dictated history and physical. Please also see dictated history and physical for pertinent findings on physical exam. LABORATORY AND X-RAY SUMMARY FROM THIS ADMISSION: Laboratory included a chemistry panel done on 12/20/2016, which showed a sodium of 143, potassium 4.4, BUN 14, creatinine 1.0, and blood sugar was normal at 84. The patient also had a TSH done, which showed normal thyroid function with a TSH of 0.743. HOSPITAL COURSE: The patient was admitted to the residential care program and assigned to his primary counselor, Ernestina Rivera. He remained in treatment from 11/29/2016, through 12/27/2016. While in treatment, he participated in individual therapy and group therapy. He was also given the educational series on substance abuse and worked on many of these assignments throughout his stay at the treatment program. The patient did attend family education, but had no family in attendance. While in treatment, he worked well with the staff in both individual and group sessions. He had no significant medical issues during his hospital stay. While in treatment, he verbalized understanding of the severity of his chemical dependency. He was able to recognize his powerlessness over drugs and alcohol. He also was able to recognize how drugs made his life unmanageable. He practiced identifying and appropriately expressing his feelings. He began to work on relapse prevention identifying relapse triggers and working on his own personal relapse prevention plan. He ultimately completed his residential treatment goals and ADMIT: 11/29/2016 RM/LOC: [id number] MR#: [id number] [facility] [place] [id number] JOSE CARLOS SHERWOOD [address] [place] [address] General Discharge Summary SEX: M AGE: 26 : 1990 was felt to be ready for the next level of care. It was recommended that he check into a sober living community and he was accepted into the [facility]. At the time of discharge, he was to go directly to the [facility] and reside there for the next 6 to 9 months while he participates in outpatient treatment here at [facility]. He is going to do his outpatient aftercare recovery here at [facility]. He will do individual sessions with Roscoe Rios on a weekly basis. He will also do outpatient group weekly on Monday night. He is to attend 3 to 5 AA or NA meetings per week and maintain preferably daily contact with his sponsor and try to work a strong program of recovery while living at the [facility]. It was recommended that he follow through with all probation rules and regulations. If he relapses while he is at the [address], he would then be recommended that he go to a alf house. CONDITION AT DISCHARGE: Improved. PROGNOSIS: [place] to be good if he follows through on aftercare treatment recommendations. DISCHARGE MEDICATIONS: His medications at dismissal were to include: 1. Lisinopril 10 mg 1 daily. 2. Melatonin 6 mg at bedtime. Patrice Cazares MD/ [facility] JOB #: [id number] CC: Patrice Cazares MD, Attending Physician NO FAMILY PHYSICIAN, Family Physician
== END 2016-12-27 10:12 | disposition home or self-care (01) | DRG 895 ==
LOC: ADTC 10:22
PROVIDERS: ADMIT Family Medicine
PROC: HZ43ZZZ Group Counseling for Substance Abuse Treatment, 12-Step (ICD-10-PCS; principal; 2016-11-29)
PROC: HZ34ZZZ Individual Counseling for Substance Abuse Treatment, Interpersonal (ICD-10-PCS; principal; 2016-11-29)
DX: F12.20 Cannabis dependence, uncomplicated (principal); F15.20 Other stimulant dependence, uncomplicated; F17.210 Nicotine dependence, cigarettes, uncomplicated; M54.9 Dorsalgia, unspecified; G89.29 Other chronic pain; M41.35 Thoracogenic scoliosis, thoracolumbar region; Z65.3 Problems related to other legal circumstances